=== PATIENT | female | born 1995 | race American Indian/Alaskan Native ===

== ENCOUNTER 2016-02-21 15:50 | Emergency (ER) | payer SELFPAY ==
--- NOTE | 2016-02-21 16:42 | Emergency Department Report ---
Chief Complaint: Vaginal Bleeding Stated Complaint: STOMACH PAINS/SPOTTING Time Seen by Provider: 02/21/16 16:30 - HPI History of Present Illness: 20 yo female c/o of pink color d/c when wiping self.. No pads used. She reports abdominal cramping today but none now. Denies urinary burning, freq or urgency.. C/O lt upper back pain.. Patient reports positive home preg. test. LMP 11/17/2015 - ROS Review of Systems: All systems are negative unless stated in HPI above - Exam Vital Signs: Vital Signs 02/21/16 16:23 Temperature 98.4 F Pulse Rate 74 Respiratory 18 Rate Blood Pressure 146/88 O2 Sat by Pulse 100 Oximetry Physical Exam: GEN: this is a 20 yo female well nourished and well developed in no acute distress CV: S1S2. RRR ABD: soft, NTTP in all quadrants. NL BS. MSE screening note: Focused history and physical exam performed. Due to findings the following was ordered:see MDM ED Medical Decision Making - Medical Decision Making MDM: Patient seen by provider in Triage Labs: Vaginal bleed protocol Diagnostics: ultrasound if Patient to be seen by provider in main ed ED Disposition for MSE Condition: Stable
[2016-02-21 17:01] LABS: Basophils % (Auto) 0.6 % (0.0-1.8); Eosinophils % (Auto) 3.5 % (0.0-4.3); Hematocrit 36.2 % (30.3-42.9); Hemoglobin 11.8 gm/dl (10.1-14.3); Mean Corpuscular HGB Conc 33 % (30-34); Mean Corpuscular Hemoglobin 27 pg (28-32); Mean Corpuscular Volume 83 fl (79-97); Platelet Count 250 K/mm3 (140-440); Red Blood Count 4.37 M/mm3 (3.65-5.03); Red Cell Distribution Width 13.8 % (13.2-15.2); White Blood Count 5.9 K/mm3 (4.5-11.0)
[2016-02-21 17:45] LABS: Bacteria,Urine 1+ /HPF (Negative); Bilirubin,Urine NEG (Negative); Blood,Urine MOD (Negative); Ketones,Urine NEG (Negative); Leukocyte Esterase,Urine TR (Negative); Mucus,Urine FEW /HPF; Nitrite,Urine NEG (Negative); Protein,Urine <15 mg/dL mg/dL (Negative); Urobilinogen,Urine < 2.0 mg/dL (<2.0); WBC,Urine < 1.0 /HPF (0.0-6.0)
--- NOTE | 2016-02-21 20:11 | Ultrasound Report ---
FINAL REPORT EXAM: US OB TRANSVAGINAL HISTORY: vaginal bleed and . LMP 11/25/2015 with estimated age 12 weeks 4 days and EDC 08/31/2013 TECHNIQUE: Ultrasound of the pelvis using transabdominal and transvaginal imaging PRIORS: None. FINDINGS: Uterus: Uterus is enlarged in size, retroverted in position, and normal and homogeneous in echogenicity without focal fibroid formation. The uterus measures 8.8 x 5.7 x 7.4 cm in size. There is a single early intrauterine gestation noted. Small amount of fluid in the cervical canal is nonspecific. Intrauterine gestation: There is a single intrauterine gestation identified with a pole and questionable yolk sac. There is no heart tone monitored during this exam, despite multiple attempts. [place]-rump length measurement of 13.4 mm corresponds to estimated age 7 weeks 4 days within EDC 10/05/2016. Ovaries: Both ovaries appear normal in echogenicity with normal blood flow bilaterally. The right ovary is enlarged. The right ovary measures 4.3 x 3.2 x 2.8 cm on the left ovary measures 2.8 x 2.9 x 1.6 cm in size. There is a 1.1 cm cystic avascular structure in the right adnexa, probably a corpus luteum. No suspicious adnexal mass is noted. Other: There is no evidence for solid adnexal mass is seen. There is minimal free fluid in the cul-de-sac. IMPRESSION: 1. single intrauterine with an approximate age of 7 weeks 4 days. No heart tones are monitored which is abnormal at this gestational age. Findings suggest demise. 2. A structure in the right ovary, probably the corpus luteum. 3. Retroverted uterus.
--- NOTE | 2016-02-21 20:12 | Ultrasound Report ---
FINAL REPORT EXAM: US OB < = 14 WEEKS FETUS HISTORY: vaginal bleed and . LMP 11/25/2015 with estimated age 12 weeks 4 days and EDC 08/31/2013 TECHNIQUE: Ultrasound of the pelvis using transabdominal and transvaginal imaging PRIORS: None. FINDINGS: Uterus: Uterus is enlarged in size, retroverted in position on transvaginal imaging, and normal and homogeneous in echogenicity without focal fibroid formation. The uterus measures 8.8 x 5.7 x 7.4 cm in size. There is a single early intrauterine gestation noted. Small amount of fluid in the cervical canal is nonspecific. Intrauterine gestation: There is a single intrauterine gestation identified with a pole and questionable yolk sac. There is no heart tone monitored during this exam, despite multiple attempts. [place]-rump length measurement of 13.4 mm corresponds to estimated age 7 weeks 4 days within EDC 10/05/2016. Ovaries: Both ovaries appear normal in echogenicity with normal blood flow bilaterally. The right ovary is enlarged. The right ovary measures 4.3 x 3.2 x 2.8 cm on the left ovary measures 2.8 x 2.9 x 1.6 cm in size. There is a 1.1 cm cystic avascular structure in the right adnexa, probably a corpus luteum. No suspicious adnexal mass is noted. Other: There is no evidence for solid adnexal mass is seen. There is minimal free fluid in the cul-de-sac. IMPRESSION: 1. single intrauterine with an approximate age of 7 weeks 4 days. No heart tones are monitored which is abnormal at this gestational age. Findings suggest demise. 2. A structure in the right ovary, probably the corpus luteum. 3. Retroverted uterus on transvaginal imaging.
--- NOTE | 2016-02-21 22:53 | Emergency Department Report ---
ED Female HPI - General Chief complaint: Vaginal Bleeding Stated complaint: STOMACH PAINS/SPOTTING Time Seen by Provider: 02/21/16 16:37 Source: patient, RN notes reviewed Mode of arrival: Ambulatory Limitations: No Limitations - History of Present Illness Initial comments: This is a 20-year-old female, previously unknown to me. She is 1, para 0. Does not have a local primary care doctor. No [facility] INSPECTOR doctor. Reports last menstrual period is 11/17/2015. Patient complains of vaginal spotting and abdominal cramping since this morning. Cramping is intermittent. It has no exacerbating or relieving factors. No nausea or vomiting. No fevers or chills. No chest pain or shortness of breath. No extremity weakness or numbness. No irritative or obstructive urinary symptoms. Patient states no care. Physical examination was unremarkable. Had minimal vaginal bleeding. Intrauterine was identified on transvaginal ultrasound, no heart tones were noted, suggestive of demise. She is Rh+. The case was discussed with the metal drill press operator on-call, Dr. Duncan. Patient to be managed expectantly, counseled to follow up with an CUTTER INSPECTOR doctor as an outpatient. She is afebrile, with reassuring vital signs, is clinically well- appearing, noted to be drinking without difficulty, and testing on a cellular phone. She will be discharged with instructions to follow up with outpatient gynecology. Return precautions were extensively reviewed. Complaint: vaginal bleeding -: Gradual Location: suprapubic Severity: mild Quality: cramping Consistency: intermittent Improves with: none Worsens with: none Are you Now?: Yes Associated Symptoms: vaginal bleeding. denies: nausea/vomiting, fever/chills, headaches, loss of appetite, dysuria, hematuria, rash, seizure, shortness of breath, syncope, weakness - Related Data Sexually active: Yes Home Medications Medication Instructions Recorded Confirmed Last Taken Vit-Fe Fumar-FA [ 1 tab PO QDAY 02/21/16 02/21/16 02/21/16 08: 00 Vitamin] Allergies Allergy/AdvReac Type Severity Reaction Status Date / Time No Known Allergies Allergy Unverified 02/21/16 16:20 ED Review of Systems ROS: Stated complaint: STOMACH PAINS/SPOTTING Other details as noted in HPI Constitutional: denies: fever Eyes: denies: vision change ENT: denies: epistaxis Respiratory: denies: cough Cardiovascular: denies: chest pain Gastrointestinal: as per HPI Genitourinary: abnormal menses Musculoskeletal: denies: back pain Skin: denies: lesions Neurological: denies: weakness ED Past Medical Hx - Past Medical History Additional medical history: PULMONARY STENOSIS - Surgical History Past Surgical History?: No - Social History Smoking Status: Never Smoker Substance Use Type: None - Medications Home Medications: Home Medications Medication Instructions Recorded Confirmed Last Taken Type Vit-Fe Fumar-FA [ 1 tab PO QDAY 02/21/16 02/21/16 02/21/16 08: 00 History Vitamin] ED Physical Exam - General Limitations: No Limitations General appearance: alert, in no apparent distress - Head Head exam: Present: atraumatic, normocephalic - Eye Eye exam: Present: normal appearance, EOMI. Absent: nystagmus - ENT ENT exam: Present: normal exam, normal orophraynx, mucous membranes moist, normal external ear exam - Neck Neck exam: Present: normal inspection, full ROM. Absent: tenderness, meningismus - Respiratory Respiratory exam: Present: normal lung sounds bilaterally. Absent: respiratory distress, wheezes, rales, rhonchi, stridor, chest wall tenderness - Cardiovascular Cardiovascular Exam: Present: regular rate, normal rhythm, normal heart sounds. Absent: bradycardia, tachycardia, irregular rhythm, systolic murmur, diastolic murmur, rubs, gallop - GI/Abdominal GI/Abdominal exam: Present: soft, normal bowel sounds. Absent: distended, tenderness, guarding, rebound, rigid, pulsatile mass - External exam: Present: normal external exam Speculum exam: Present: normal speculum exam, vaginal bleeding Bi-manual exam: Present: normal bi-manual exam, other (escorted by nurse Genevieve Warner during gynecologic exam). Absent: cervical motion tendernes, adnexal tenderness, adnexal mass, uterine enlargement, uterine tenderness - Extremities Exam Extremities exam: Present: normal inspection, full ROM, normal capillary refill. Absent: tenderness, pedal edema, joint swelling, calf tenderness - Back Exam Back exam: Present: normal inspection, full ROM. Absent: tenderness, CVA tenderness (R), CVA tenderness (L), muscle spasm, paraspinal tenderness, vertebral tenderness - Neurological Exam Neurological exam: Present: alert, oriented X3, normal gait, other (Extraocular movements intact. Tongue midline. No facial droop. Facial sensation intact to light touch in the V1, V2, V3 distribution bilaterally. 5 and 5 strength in 4 extremities.. Sensation is intact to light touch in 4 extremities.). Absent : motor sensory deficit - Psychiatric Psychiatric exam: Present: normal affect, normal mood - Skin Skin exam: Present: warm, dry, intact, normal color. Absent: rash ED Course Vital Signs 02/21/16 02/21/16 02/21/16 16:23 22:10 23:39 Temperature 98.4 F Pulse Rate 74 78 80 Respiratory 18 18 18 Rate Blood Pressure 146/88 Blood Pressure 138/84 142/88 [Left] O2 Sat by Pulse 100 99 99 Oximetry ED Medical Decision Making - Lab Data Result diagrams: 02/21/16 16:45 Vital Signs 02/21/16 02/21/16 16:23 22:10 Temperature 98.4 F Pulse Rate 74 78 Respiratory 18 18 Rate Blood Pressure 146/88 Blood Pressure 138/84 [Left] O2 Sat by Pulse 100 99 Oximetry Vital Signs 02/21/16 02/21/16 16:23 22:10 Temperature 98.4 F Pulse Rate 74 78 Respiratory 18 18 Rate Blood Pressure 146/88 Blood Pressure 138/84 [Left] O2 Sat by Pulse 100 99 Oximetry Lab Results 02/21/16 02/21/16 02/21/16 Range/Units 16:45 16:45 16:47 WBC 5.9 (4.5-11.0) K/mm3 RBC 4.37 (3.65-5.03) M/mm3 Hgb 11.8 (10.1-14.3) gm/dl Hct 36.2 (30.3-42.9) % MCV 83 (79-97) fl MCH 27 L (28-32) pg MCHC 33 (30-34) % RDW 13.8 (13.2-15.2) % Plt Count 250 (140-440) K/mm3 Lymph % (Auto) 42.0 H (13.4-35.0) % [place] % (Auto) 6.6 (0.0-7.3) % Eos % (Auto) 3.5 (0.0-4.3) % Baso % (Auto) 0.6 (0.0-1.8) % Lymph # 2.5 (1.2-5.4) K/mm3 [place] # 0.4 (0.0-0.8) K/mm3 Eos # 0.2 (0.0-0.4) K/mm3 Baso # 0.0 (0.0-0.1) K/mm3 Seg Neutrophils % 47.3 (40.0-70.0) % Seg Neutrophils # 2.8 (1.8-7.7) K/mm3 HCG, Quant 953.0 H (0-4) mIU/mL Urine Color (Yellow) Urine Turbidity (Clear) Urine pH (5.0-7.0) Ur Specific [place] (1.003-1.030) Urine Protein (Negative) mg/dL Urine Glucose (UA) (Negative) mg/dL Urine Ketones (Negative) mg/dL Urine Blood (Negative) Urine Nitrite (Negative) Urine Bilirubin (Negative) Urine Urobilinogen (<2.0) mg/dL Ur Leukocyte Esterase (Negative) Urine WBC (Auto) (0.0-6.0) /HPF Urine RBC (Auto) (0.0-6.0) /HPF U Epithel Cells (Auto) (0-13.0) /HPF Urine Bacteria (Auto) (Negative) /HPF Urine Mucus /HPF Blood Type AB POSITIVE Antibody Screen Negative 02/21/16 Range/Units 17:24 WBC (4.5-11.0) K/mm3 RBC (3.65-5.03) M/mm3 Hgb (10.1-14.3) gm/dl Hct (30.3-42.9) % MCV (79-97) fl MCH (28-32) pg MCHC (30-34) % RDW (13.2-15.2) % Plt Count (140-440) K/mm3 Lymph % (Auto) (13.4-35.0) % [place] % (Auto) (0.0-7.3) % Eos % (Auto) (0.0-4.3) % Baso % (Auto) (0.0-1.8) % Lymph # (1.2-5.4) K/mm3 [place] # (0.0-0.8) K/mm3 Eos # (0.0-0.4) K/mm3 Baso # (0.0-0.1) K/mm3 Seg Neutrophils % (40.0-70.0) % Seg Neutrophils # (1.8-7.7) K/mm3 HCG, Quant (0-4) mIU/mL Urine Color Yellow (Yellow) Urine Turbidity Clear (Clear) Urine pH 6.0 (5.0-7.0) Ur Specific [place] 1.021 (1.003-1.030) Urine Protein <15 mg/dl (Negative) mg/dL Urine Glucose (UA) Neg (Negative) mg/dL Urine Ketones Neg (Negative) mg/dL Urine Blood Mod (Negative) Urine Nitrite Neg (Negative) Urine Bilirubin Neg (Negative) Urine Urobilinogen < 2.0 (<2.0) mg/dL Ur Leukocyte Esterase Tr (Negative) Urine WBC (Auto) < 1.0 (0.0-6.0) /HPF Urine RBC (Auto) 1.0 (0.0-6.0) /HPF U Epithel Cells (Auto) 5.0 (0-13.0) /HPF Urine Bacteria (Auto) 1+ (Negative) /HPF Urine Mucus Few /HPF Blood Type Antibody Screen - Radiology Data Radiology results: report reviewed, image reviewed Transvaginal ultrasound demonstrates intrauterine , with an age of 7 weeks and 4 days. There are no heart tones noted. The ovaries appear to be within normal limits. No suspicious masses are noted. Findings suggest demise. - Differential Diagnosis miscarriage, inevitable miscarriage, threatened miscarriage, intrauterine d Critical care attestation.: If time is entered above; I have spent that time in minutes in the direct care of this critically ill patient, excluding procedure time. ED Disposition Clinical Impression: Miscarriage Disposition: DISCHARGED TO HOME OR SELFCARE Is pt being admited?: No Does the pt Need Aspirin: No Condition: Stable Instructions: Spontaneous Miscarriage (ED) Additional Instructions: Laboratory studies and ultrasound suggested miscarriage. Ultrasound did not demonstrate heartbeat. Findings suggestive of inevitable miscarriage and demise. Rest and avoid heavy lifting. Follow up with an C[facility] INSPECTOR doctor within the next week. Numerous names, phone numbers, addresses of local C[facility] INSPECTOR doctors have been listed in the paperwork for your convenience. Return to the ER right away with severe abdominal pain, bleeding more than 2 pads per hour, dizziness, lightheadedness, chest pain, shortness of breath, intractable nausea or vomiting. Referrals: PRIMARY CARE, [Primary Care Provider] - 3-5 Days STAS DUNCAN MD [Staff Physician] - 3-5 Days [facility] [Provider Group] - 3-5 Days [facility] [Provider Group] - 3-5 Days
[2016-02-21 23:39] VITALS: BP 142/88
== END 2016-02-21 23:38 | disposition home or self-care (01) ==
LOC: ED 15:50
DX: O03.9 Complete or unspecified spontaneous abortion without complication (principal); Z3A.01 Less than 8 weeks gestation of pregnancy
CPT/HCPCS: 36415; 76801; 76817; 81001; 84702; 85025; 86850; 86900; 86901

== ENCOUNTER 2016-02-22 17:15 | Emergency (ER) | payer SELFPAY ==
[2016-02-22] MEDS ORDERED: ZOFRAN IV ONE ×2 (18:04→20:42)
[2016-02-22] MEDS ORDERED: NACL 0.9% 1000 ML 1,000 ML IV ONE (18:04)
[2016-02-22 18:14] LABS: Basophils % (Auto) 0.4 % (0.0-1.8); Eosinophils % (Auto) 0.3 % (0.0-4.3); Hematocrit 36.9 % (30.3-42.9); Hemoglobin 12.1 gm/dl (10.1-14.3); Mean Corpuscular HGB Conc 33 % (30-34); Mean Corpuscular Hemoglobin 27 pg (28-32); Mean Corpuscular Volume 82 fl (79-97); Platelet Count 232 K/mm3 (140-440); Red Blood Count 4.47 M/mm3 (3.65-5.03); Red Cell Distribution Width 13.7 % (13.2-15.2); White Blood Count 7.6 K/mm3 (4.5-11.0)
--- NOTE | 2016-02-22 18:27 | Emergency Department Report ---
HPI - General Chief Complaint: Abdominal Pain Time Seen by Provider: 02/22/16 17:52 - HPI HPI: Room 17 The patient is a 20-year-old female presenting with a chief complaint of abdominal pain and vaginal bleeding. The patient was seen yesterday for vaginal spotting and diagnosis with probable demise/miscarriage. She had an ultrasound as noted in the place where 7 weeks gestational age there is no cardiac activity noted. The patient states when she went home vaginal bleeding heavier she's gone through 5 pads since she was discharged yesterday. The patient states this morning at 04:00 she began having sharp lower abdominal pain and felt dizzy and had nausea and vomiting prior to arrival Location: Pelvis Duration: [see above] Quality: Sharp Severity: Moderate Modifying factors: [see above] Context: [see above] Mode of transportation: [not driving] ED Past Medical Hx - Past Medical History Additional medical history: PULMONARY STENOSIS - Surgical History Past Surgical History?: No - Family History Family history: no significant - Social History Smoking Status: Never Smoker Substance Use Type: None - Medications Home Medications: Home Medications Medication Instructions Recorded Confirmed Last Taken Type Vit-Fe Fumar-FA [ 1 tab PO QDAY 02/21/16 02/21/16 02/21/16 08: 00 History Vitamin] HYDROcodone/APAP 5-325 [[place] 1 each PO Q6HR PRN #10 tablet 02/22/16 Unknown Rx 5/325] Ibuprofen [Motrin 800 MG tab] 800 mg PO Q8HR PRN #20 tablet 02/22/16 Unknown Rx ED Review of Systems ROS: Stated complaint: N/V ABD PAIN Other details as noted in HPI Comment: All other systems reviewed and negative Constitutional: denies: chills, fever Eyes: denies: eye pain, eye discharge, vision change ENT: denies: ear pain, throat pain Respiratory: denies: cough, shortness of breath, wheezing Cardiovascular: denies: chest pain, palpitations Endocrine: no symptoms reported Gastrointestinal: abdominal pain, nausea, vomiting Genitourinary: abnormal menses Musculoskeletal: denies: back pain, joint swelling, arthralgia Skin: denies: rash, lesions Neurological: other (dizziness). denies: headache, weakness, paresthesias Psychiatric: denies: anxiety, depression Hematological/Lymphatic: denies: easy bleeding, easy bruising Physical Exam - Physical Exam Vital Signs: Vital Signs 02/22/16 02/22/16 17:34 17:42 Temperature 98.2 F Pulse Rate 77 Respiratory 12 12 Rate Blood Pressure 105/58 Blood Pressure 105/58 [Right] O2 Sat by Pulse 100 100 Oximetry Physical Exam: GENERAL: The patient is well-developed well-nourished female lying on stretcher appearing to be in moderate discomfort. [] HEENT: Normocephalic. Atraumatic. Extraocular motions are intact. Patient has moist mucous membranes. NECK: Supple. Trachea midline CHEST/LUNGS: Clear to auscultation. There is no respiratory distress noted. HEART/CARDIOVASCULAR: Regular. There is no tachycardia. There is no gallop rub or murmur. ABDOMEN: Abdomen is soft, with diffuse discomfort to palpation. Patient has normal bowel sounds. There is no abdominal distention. SKIN: There is no rash. There is no edema. There is no diaphoresis. NEURO: The patient is awake, alert, and oriented. The patient is cooperative. The patient has normal speech MUSCULOSKELETAL: There is no evidence of acute injury. PELVIC: ED Course Vital Signs 02/22/16 02/22/16 17:34 17:42 Temperature 98.2 F Pulse Rate 77 Respiratory 12 12 Rate Blood Pressure 105/58 Blood Pressure 105/58 [Right] O2 Sat by Pulse 100 100 Oximetry - Consultations Consultation #1: 02/22/16 20:[address] Brown (FOREMAN OR SUPERVISOR AND OPERATOR)-will evaluate in the ED 21:28-products were removed from cervical os by FOREMAN OR SUPERVISOR AND OPERATOR. States patient can be discharged from the ED and follow-up with an FOREMAN OR SUPERVISOR AND OPERATOR in several days. Discharge patient home with pain medication 02/22/16 21:28 ED Medical Decision Making - Lab Data Result diagrams: 02/22/16 18:05 Laboratory Tests 02/22/16 02/22/16 18:05 18:05 WBC 7.6 RBC 4.47 Hgb 12.1 Hct 36.9 MCV 82 MCH 27 L MCHC 33 RDW 13.7 Plt Count 232 Lymph % (Auto) 10.3 L [place] % (Auto) 3.6 Eos % (Auto) 0.3 Baso % (Auto) 0.4 Lymph # 0.8 L [place] # 0.3 Eos # 0.0 Baso # 0.0 Seg Neutrophils % 85.4 H Seg Neutrophils # 6.5 HCG, Quant 497.0 H - Differential Diagnosis spontaneous , incomplete Critical care attestation.: If time is entered above; I have spent that time in minutes in the direct care of this critically ill patient, excluding procedure time. ED Disposition Clinical Impression: Incomplete Disposition: DISCHARGED TO HOME OR SELFCARE Is pt being admited?: No Does the pt Need Aspirin: No Condition: Stable Instructions: Abdominal Pain (ED), Spontaneous Miscarriage (ED) Additional Instructions: Return to the emergency department immediately should you develop worsening symptoms, fever, inability to tolerate food or liquid or any other concerns. Prescriptions: HYDROcodone/APAP 5-325 [[place] 5/325] 1 each PO Q6HR PRN #10 tablet PRN Reason: Pain Ibuprofen [Motrin 800 MG tab] 800 mg PO Q8HR PRN #20 tablet PRN Reason: Pain Referrals: PRIMARY CARE, [Primary Care Provider] - 3-5 Days SAYRA BROWN MD [Staff Physician] - 3-5 Days Time of Disposition: 21:34
--- NOTE | 2016-02-22 19:47 | Ultrasound Report ---
FINAL REPORT PROCEDURE: US OB TRANSVAGINAL TECHNIQUE: Real-time transvaginal sonography of the uterus, placenta, amniotic fluid, adnexa, and fetus was performed with image documentation. Measurements were obtained to determine age/size. M-mode Doppler was used to document heartbeat. CPT 29969 HISTORY: increased vaginal bleeding, lower abdominal pain COMPARISON: Ultrasound from prior day FINDINGS: No IUP is seen. Prominence of the endometrium is seen measuring 2.6 cm. Findings likely represent missed . Retained products of conception are not excluded. Right ovary measures 3.7 x 2.3 x 3.2 cm. Left ovary measures 2.2 x 2.1 x 1.6 cm. Mild free fluid is seen in the pelvis. Normal Doppler flow is seen in the ovaries. No adnexal masses are seen. IMPRESSION: Findings suggest missed . Possible retained products of conception are seen.
--- NOTE | 2016-02-22 19:47 | Ultrasound Report ---
FINAL REPORT PROCEDURE: US OB < = 14 WEEKS FETUS TECHNIQUE: Real-time transabdominal and transvaginal sonography of the uterus, placenta, amniotic fluid, adnexa, and fetus was performed with image documentation. Measurements were obtained to determine age/size. M-mode Doppler was used to document heartbeat. [place] 73487 [place] [address]10 HISTORY: increased vaginal bleeding, lower abdominal pain COMPARISON: Ultrasound dated February 21, 2016 FINDINGS: ADDITIONAL GESTATION: None. No IUP is seen. Prominence of the endometrium is seen measuring 2.6 cm. Findings likely represent missed . Retained products of conception are not excluded. Right ovary measures 3.7 x 2.3 x 3.2 cm. Left ovary measures 2.2 x 2.1 x 1.6 cm. Mild free fluid is seen in the pelvis. Normal Doppler flow is seen in the ovaries. No adnexal masses are seen. IMPRESSION: Findings suggest missed . Possible retained products of conception are seen.
[2016-02-22] MEDS ORDERED: MORPHINE IV ONE (20:42)
[2016-02-22 21:38] VITALS: BP 116/61
== END 2016-02-22 21:52 | disposition home or self-care (01) ==
LOC: ED 17:15
DX: O03.4 Incomplete spontaneous abortion without complication (principal); Z3A.01 Less than 8 weeks gestation of pregnancy
CPT/HCPCS: 36415; 76801; 76817; 84702; 85025; 88305; 96361; 96374; 96375; 96376; 99285; J2270; J2405; J7030